=== PATIENT | female | born 1990 ===

== ENCOUNTER 2018-12-09 11:30 | Inpatient (IN) | payer OTHER ==
[~2018-12-09] VITALS: Ht 165.1 cm; Wt 67.1 kg
[2018-12-15] MEDS ORDERED: PRENATABS RX T1 EACH PO (09:06)
== END 2018-12-17 11:02 | disposition home or self-care (01) | DRG 807 ==
LOC: O/R 11:30 → LDR 12-15 07:00 → OB/GYN 12-15 07:00 → O/R 12-22 11:30
PROVIDERS: ADMIT Obstetrics & Gynecology
PROC: 10E0XZZ Delivery of Products of Conception, External Approach (ICD-10-PCS; principal; 2018-12-15)
PROC: 0W8NXZZ Division of Female Perineum, External Approach (ICD-10-PCS; 2018-12-15)
PROC: 3E033VJ Introduction of Other Hormone into Peripheral Vein, Percutaneous Approach (ICD-10-PCS; 2018-12-15)
PROC: 4A1HXCZ Monitoring of Products of Conception, Cardiac Rate, External Approach (ICD-10-PCS; 2018-12-15)
DX: O80 Encounter for full-term uncomplicated delivery (principal); Z37.0 Single live birth; Z3A.39 39 weeks gestation of pregnancy